=== PATIENT | female | born 1930 | race Caucasian/White ===

== ENCOUNTER → 2016-11-20 | Outpatient (CLI) | payer MEDICARE, BC ==
[~2016-11-20] MED LIST: ASPIRIN PO; ASPIRIN81 MG PO; CALCIUM + D 6001 TA1 PO; CALCIUM + D PO; CALCIUM CITRATE1 T15 PO; CARTIA XT PO; CORDARONE200 M1 PO; CYANOCOBALAM1000 MCG PO; ECOTRIN81 M1 PO; FLEXERIL10 MG PO; GAS RELIEF125 MG PO; HYDROCODONE-APA1 T57 PO; MAG-AL ULTIMATE20 ML PO; NO MEDICATIONS; OXYCODONE-ACET1 EACH PO; PANTOPRAZOLE SO40 MG PO; PROTONIX PO; REGLAN5 MG PO; TYLENOL500 MG PO; VIT E PO; VITAMIN B12-FO1 EACH PO
--- NOTE | ~2016-11-20 | CT4 ---
[facility] A Service of [facility] RADIOLOGY TEXT RESULTS PATIENT: WYATT GLEZ LOCATION: [facility] : 32 UNIT #: [id number] AGE: [address]: Trev Juan MD SEX: F ORDER DR: [id number] [facility] [address] [place], [place] [address] [id number] O MR#: [id number] Acc #: [id number] NAME: WYATT GLEZ : 1930 SEX: F STUDY DATE/TIME: 11/20/2016 10:03 UNIT: [facility] ROOM: STUDY DESCRIPTION: CT Abd and Pelv Wo Cont Attending Physician: Trev Juan M.D. Referring Physician: Trev Juan M.D. Ordering Physician: Trev Juan M.D. Primary Care Physician: Trev Juan M.D. MEDICAL IMAGING REPORT This report is preliminary unless electronic signature is present EXAM CT abdomen and pelvis without contrast INDICATIONS Hematuria for the past week PROCEDURE Unenhanced CT of the abdomen and pelvis. This CT exam was performed with one or more of the following radiation dose reduction techniques: automatic exposure control, adjustment of mA and/or kV according to patient size, and iterative reconstruction. COMPARISON 10/07/2014 FINDINGS ABDOMEN WITHOUT CONTRAST: The included lung bases are clear. The liver and spleen unremarkable. 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 Adrenal glands and pancreas unremarkable. Previous cholecystectomy. Uncomplicated sigmoid diverticula. No radiodense urinary system calculus or hydronephrosis. There are bilateral renal cysts; largest in the left upper pole measures 3.7 cm. PELVIS WITHOUT CONTRAST: No pelvic mass or fluid. No radiodense bladder calculus. No aggressive-appearing bone lesion. IMPRESSION 1. No radiodense urinary system calculus. No finding to explain the patient's hematuria on this unenhanced study. 2. Incidental findings are detailed above. [facility] A Service [facility] RADIOLOGY TEXT RESULTS PATIENT: WYATT GLEZ LOCATION: [facility] : 32 UNIT #: [id number] AGE: [address]: Trev Juan MD SEX: F ORDER DR: Dictated by... Waqar Kumar M.D. THIS IS AN ELECTRONICALLY VERIFIED REPORT Waqar Kumar M.D. at 11/21/2016 7:11 AM RADHA/tita TD: 11/20/2016 16:02 JOB #: [id number] MEDICAL IMAGING REPORT Page 1 of 1 COPY
== END | disposition home or self-care (01) ==
LOC: CCAT 09:43
DX: R31.9 Hematuria, unspecified (principal)
CPT/HCPCS: 74176